=== PATIENT | female | born 1995 | race Caucasian/White ===

== ENCOUNTER 2019-10-22 13:11 | Emergency (ER) | payer OTHER ==
[~2019-10-22] VITALS: Ht 160 cm; Wt 46.3 kg
[2019-10-22] MEDS ORDERED: CARNITOR 10100 MG/ML (13:22)
== END 2019-10-22 17:45 | disposition home or self-care (01) ==
LOC: ER 13:11
DX: J45.998 Other asthma (principal)

== ENCOUNTER 2021-03-29 10:53 | Emergency (ER) | payer OTHER ==
[~2021-03-29] VITALS: Ht 160 cm; Wt 46.3 kg
[~2021-03-29 10:53] MED LIST: CARNITOR 10100 MG/ML
== END 2021-03-29 12:59 | disposition home or self-care (01) ==
LOC: ER 10:53
DX: R07.89 Other chest pain (principal)